=== PATIENT | female | born 1940 | race Caucasian/White ===

== ENCOUNTER 2018-04-09 18:31 | Observation (INO) ==
--- NOTE | 2018-04-09 19:53 | Emergency Department Note ---
Lower Extremity Injury HPI - General Chief Complaint: Extremity Injury, Lower Stated Complaint: Left Hip Pain Time Seen by Provider: 04/09/18 19:07 Source: patient Mode of arrival: wheelchair Limitations: no limitations - History of Present Illness HPI Narrative: This patient had a left hip replacement on March [address] Meadows. This afternoon she began to have pain in the left hip with some swelling. No associated trauma. She is unable to walk on it now. - Related Data Home Medications Medication Instructions Recorded Confirmed calcium carbonate 500 mg calcium 500 mg PO QDAY tab 07/03/15 11/26/17 (1,250 mg) tablet cholecalciferol (vitamin D3) 2,000 2,000 unit PO QDAY 07/03/15 11/26/17 unit capsule cholestyramine (with sugar) 4 gram PO 21 Days #378 06/23/16 05/03/17 oral powder cyanocobalamin (vit B-12) 1,000 1,000 mcg PO QDAY 06/23/16 11/26/17 mcg tablet Previous Rx's Medication Instructions Recorded levothyroxine 50 mcg tablet 50 mcg PO DAILY #90 tab 05/06/17 sertraline 100 mg tablet 100 mg PO QDAY #90 tab 10/14/17 Allergies Allergy/AdvReac Type Severity Reaction Status Date / Time metformin AdvReac Unknown Diarrhea Verified 02/06/18 00:25 Review of Systems All systems ED: reviewed and negative except as stated. 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 She does have some swelling lateral to the hip. Limitations: no limitations General appearance: alert Head: atraumatic Chest: Present: normal inspection Respiratory: Present: normal lung sounds bilaterally Cardiovascular: Present: regular rate, normal rhythm, normal heart sounds Neurological: Present: alert Psychiatric: Present: normal affect Skin: Present: warm, dry Course Vital Signs Temperature 96.0 F L 04/09/18 18:31 Pulse Rate 117 H 04/09/18 18:31 Respiratory Rate 26 H 04/09/18 18:31 Blood Pressure 115/77 04/09/18 18:31 Pulse Oximetry (%) 100 04/09/18 18:31 Temperature 96.0 F L 04/09/18 18:31 Pulse Rate 117 H 04/09/18 18:31 Respiratory Rate 26 H 04/09/18 18:31 Blood Pressure 115/77 04/09/18 18:31 Pulse Oximetry (%) 100 04/09/18 18:31 Extremity Injury, Lower - MDM Narrative Medical decision making narrative: X-ray left hip shows similar bone pulling away from the prosthesis at the upper aspect. I discussed the case with Dr. Clemente Lopez the patient will be admitted to the hospital for pain control with Dr. Meadows to consult tomorrow. - Radiology Data Radiology results reviewed: Yes I reviewed the patient's radiology results. Disposition Pt seen by MANAGER BAKERY/PA only: No Clinical Impression: Hip pain Disposition: Xfer As Inpt ([facility]) Condition: Good Referrals: Gwyn Salgado MD [Primary Care Provider] - Time of Disposition: 19:52
--- NOTE | 2018-04-09 20:40 | XRay Report ---
HISTORY: Reason for Exam:Left hip pain, decreased ROM. FINDINGS: Patient has a left total hip prosthesis which is well-positioned. There is no reabsorption of bone around the hardware. An intertrochanteric fracture is present in the hip. Lesser trochanter is fragmented and the fragments are displaced medially. The greater trochanter is displaced superiorly. The fracture fragments arising from the trochanters have become much more widely displaced compared with the recent x-ray done on 03/10/18. IMPRESSION: Worsening displacement of fractures involving the lesser and greater trochanters Interpreted and Authenticated by: Darnell Wiley 04/09/18
[2018-04-09] MEDS ORDERED: ONDANSETRON 4 MG/2 ML VIAL IV PRN (21:00)
[2018-04-09] MEDS ORDERED: ACETAMINOPHEN 1,000 MG/100 ML BOTTLE IV PRN (21:00)
[2018-04-09] MEDS ORDERED: SENNOSIDES/DOCUSATE SODIUM 1 TAB TABLET PO SCH (21:00)
[2018-04-09] MEDS ORDERED: POLYETHYLENE GLYCOL 3350 17 GM PACKET PO PRN (21:00)
[2018-04-09] MEDS ORDERED: MAGNESIUM HYDROXIDE 30 ML ORAL.SUSP PO PRN (21:00)
[2018-04-09] MEDS ORDERED: ACETAMINOPHEN 325 MG TABLET PO PRN (21:00)
[2018-04-09] MEDS ORDERED: traZODone HCL 50 MG TABLET PO PRN (21:00)
[2018-04-09] MEDS ORDERED: traMADol 50 MG TABLET PO PRN (21:00)
[2018-04-09] MEDS ORDERED: MAGNESIUM SULFATE 2 GM/50 ML BAG IV PRN (21:00)
[2018-04-09] MEDS ORDERED: SERTRALINE 100 MG TABLET PO SCH (21:00)
[2018-04-09] MEDS ORDERED: POTASSIUM CHLORIDE 20 MEQ PACKET PO PRN (21:00)
[2018-04-09] MEDS: HYDROcodone/APAP 5/325MG TABLET PO PRN (21:59)
[2018-04-09] MEDS: HEPARIN 5,000 UNIT/ML VIAL SQ SCH (22:00)
[2018-04-09] MEDS: 0.9 % SODIUM CHLORIDE 10 ML SYRINGE IV SCH (22:01)
[2018-04-09] MEDS: DOCUSATE SODIUM 100 MG CAPSULE PO SCH (22:01)
--- NOTE | 2018-04-09 22:12 | Internal Med History&Physical ---
Medical - H&P: [facility] Patient information: Note initiated : 04/09/18 at 10:07 pm Service Date, if different from initiated Date: [] Patient: Lyric Mishra a 77 y/o F admitted on 04/09/18 for Left Hip Pain. Chief Complaint: [] Chief complaint: left groin and hip pain History of present illness: Ms. Mishra is a 77 year old F who recently underwent left hip surgery last month and was recovering fairly well until this morning patient suddenly noticed excruciating pain along with difficulty ambulating and weightbearing. Symptoms started without any trauma or fall. Pain is described as 6 out of 10 radiating to the groin and associated with left thigh cramps. She denies bowel or bladder incontinence or dysuria or bloody stool. She denies unilateral weakness. She denies fever or localized redness or swelling. Her pain continued to get worse over the next few hours prompting her to come to the ER. Initial workup in the ER revealed worsening displacement of fracture involving lesser trochanter. Orthopedics were consulted and hospitalist service was requested for admission for pain management. At the time of evaluation patient is alert and oriented. She is in moderate discomfort. She was able to answer most questions and history as above. He denies chest pain shortness of breath, headache photophobia. Review of systems 10 point review of systems and is negative except as discussed above Medical - H&P: PM Medical history: Anemia (Chronic) remote Atrophic vaginitis (Chronic) (05/16/2014 Dr Bliss) Colon adenoma (Chronic) Cystocele (Chronic) Depression (Chronic 11/21/13) Diabetes mellitus, type II (Chronic) mild Diverticulosis of colon (Chronic) Dyspnea (Chronic) on exertion Excessive sweating (Chronic) Hernia, hiatal (Chronic 03/14/14) Hyperlipidemia (Chronic) Hypothyroidism (Chronic) Insomnia (Chronic) Low back pain (Chronic 10/26/12) Osteoporosis (Chronic) Overactive bladder (Chronic) 05/16/2014 Dr Bliss) Reactive airway disease (Chronic) Rectocele (Chronic 03/14/14) Vaginal vault prolapse, posthysterectomy (Chronic) marked Allergic contact dermatitis (Resolved 10/02/13) Inframammary monilial dermatitis Bilateral carpal tunnel syndrome (Resolved 05/14/14) Right greater than left Bladder pain (Resolved) 05/16/2014 Dr Bliss) Chest pain (Resolved) 02/28 tightness Closed fracture of surgical neck of humerus (Resolved 02/05/14) left Pneumonia (Resolved) 11/27 bilateral pneumonia Trochanteric bursitis of both hips (Resolved 10/26/12) Unexplained weight loss (Resolved 11/14/13) 25 pounds past year Urinary retention (Resolved) 05/16/2014 Dr Bliss) Urinary tract infection (Resolved) Pertinent family history: Father , Father of vascular complications Atherosclerosis Sister Dementia Hyperlipidemia Mother , at 87y Family history of diabetes mellitus Acute myocardial infarction Social history: household members: spouse housing: house marital status: smoking status: Never smoker alcohol intake frequency: a few times a week Medical - H&P: Meds Home Medications Medication Instructions Recorded Confirmed Type calcium carbonate 500 mg calcium 500 mg PO QDAY tab 07/03/15 04/09/18 History (1,250 mg) tablet cholecalciferol (vitamin D3) 2,000 2,000 unit PO QDAY 07/03/15 04/09/18 History unit capsule cholestyramine (with sugar) 4 gram PO PRN 21 Days #378 06/23/16 05/03/17 History oral powder cyanocobalamin (vit B-12) 1,000 1,000 mcg PO QDAY 06/23/16 04/09/18 History mcg tablet levothyroxine 50 mcg tablet 50 mcg PO DAILY #90 tab 05/06/17 04/09/18 Rx Aspirin [[place] Aspirin] 81 mg PO DAILY 04/09/18 04/09/18 History HYDROcodone/APAP 5/325MG [[place] 1 tab PO Q4HP PRN 04/09/18 04/09/18 History 5-325Mg] Sennosides [Senna] 8.6 mg PO DAILY 04/09/18 04/09/18 History Sertraline [Zoloft] 100 mg PO HS 04/09/18 04/09/18 History Allergies Allergy/AdvReac Type Severity Reaction Status Date / Time metformin AdvReac Unknown Diarrhea Verified 02/06/18 00:25 Medical - H&P: Exam - Constitutional Vitals: Temp Pulse Resp BP Pulse Ox 98.3 F 93 H 16 96/65 98 04/09/18 20:51 04/09/18 20:51 04/09/18 20:51 04/09/18 20:51 04/09/18 20:51 General appearance: no acute distress Exam: Pupils symmetric oral cavity dry No ear nose discharge Head normocephalic Neck no lymphadenopathy S1 and S2 regular rhythm Chest clear to auscultation Abdomen soft Lower extremity significant pain left groin and thigh No joint swelling or erythema Skin no suspicious lesion Psych alert and cooperative Neuro nonfocal Medical - H&P: A/P (1) Dislocation of internal left hip prosthesis Current visit: No Status: Acute * Displaced fracture left hip- orthopedics consulted. * Pain management continue as needed opioids. * Anxiety disorder continue Zoloft * Hypothyroidism continue thyroxine * Full Code * Prophylaxis heparin Plan * Observation admit * Pain management and orthopedics consult * Pre-existing medical condition management as above Medical - H&P: Qual - Stroke Symptom Onset Unknown: No - VTE Deep Vein Thrombosis/Pulmonary Embolism Present on Admission: No
[2018-04-10] MEDS ORDERED: 0.9 % SODIUM CHLORIDE 500 ML IV ONE
[2018-04-10] MEDS ORDERED: NALOXONE HCL 0.4 MG/ML VIAL IV PRN
[2018-04-10 01:12] LABS: Basophils # (Auto) 0 K/mcL (0.0-0.3); Basophils % (Auto) 0.6 % (0.0-2.0); Eosinophils # (Auto) 0.1 K/mcL (0.0-0.7); Eosinophils % (Auto) 1.8 % (0.0-7.0); Granulocytes % (Auto) 62.8 % (38.0-78.0); Lymphocytes # (Auto) 2.1 K/mcL (1.5-4.8); Lymphocytes % (Auto) 26.7 % (15.5-49.0); Mean Cell Volume 86.4 fL (80.0-100.0); Mean Corpuscular HGB Conc 33.6 g/dL (31.0-36.0); Monocytes # (Auto) 0.6 K/mcL (0.1-0.9); Monocytes % (Auto) 8.1 % (1.0-12.0); Platelet Count 238 K/mcL (140-440); RBC 3.06 M/mcL (4.00-5.20); Red Cell Distribution Width 15.8 % (11.5-14.5)
[2018-04-10] MEDS: 0.9 % SODIUM CHLORIDE 10 ML SYRINGE IV SCH (05:45)
[2018-04-10 06:19] LABS: ALT/SGPT 6 U/l (0-40); Albumin 3.3 gm/dL (3.2-5.2); Albumin/Globulin Ratio 1.5 (1.0-2.3); Alkaline Phosphatase 84 U/L (39-117); Bilirubin,Direct < 0.2 mg/dL (0.0-0.3); Blood Urea Nitrogen 13 mg/dl (8-23); Gamma Glutamyl Transpeptidase 26 U/L (5-36)
[2018-04-10] MEDS ORDERED: LEVOTHYROXINE 25 MCG TABLET PO SCH (07:30)
[2018-04-10] MEDS: HEPARIN 5,000 UNIT/ML VIAL SQ SCH (08:47)
[2018-04-10] MEDS: DOCUSATE SODIUM 100 MG CAPSULE PO SCH (08:47)
[2018-04-10] MEDS ORDERED: MULTIVIT,THER IRON,CA,FA & MIN 1 TABLET PO SCH (09:00)
[2018-04-10] MEDS ORDERED: ASPIRIN 81 MG TAB.CHEW PO SCH (09:00)
--- NOTE | 2018-04-10 09:50 | Orthopedic Consult Note ---
History of Present Illness - [facility] Patient information: Note initiated : 04/10/18 at 9:48 am Service Date, if different from initiated Date: [] Patient: Lyric Mishra 77 y/o F admitted on 04/09/18 for Left Hip Pain. Chief Complaint: [Pt admitted for pain control secondary to acute onset of left hip pain with presumed diagnosis of failure of revision surgery with displaced fracture of greater trochanter. ] Review of Systems Constitutional: as per HPI Musculoskeletal: abnormal gait, limited range of motion, muscle cramps, myalgias Musculoskeletal: left: hip pain, hip swelling Integumentary: unusual bruising Medications and Allergies Home Medications Medication Instructions Recorded Confirmed Type calcium carbonate 500 mg calcium 500 mg PO QDAY tab 07/03/15 04/09/18 History (1,250 mg) tablet cholecalciferol (vitamin D3) 2,000 2,000 unit PO QDAY 07/03/15 04/09/18 History unit capsule cholestyramine (with sugar) 4 gram PO PRN 21 Days #378 06/23/16 05/03/17 History oral powder cyanocobalamin (vit B-12) 1,000 1,000 mcg PO QDAY 06/23/16 04/09/18 History mcg tablet levothyroxine 50 mcg tablet 50 mcg PO DAILY #90 tab 05/06/17 04/09/18 Rx Aspirin [[place] Aspirin] 81 mg PO DAILY 04/09/18 04/09/18 History HYDROcodone/APAP 5/325MG [[place] 1 tab PO Q4HP PRN 04/09/18 04/09/18 History 5-325Mg] Sennosides [Senna] 8.6 mg PO DAILY 04/09/18 04/09/18 History Sertraline [Zoloft] 100 mg PO HS 04/09/18 04/09/18 History Allergies Allergy/AdvReac Type Severity Reaction Status Date / Time metformin AdvReac Unknown Diarrhea Verified 02/06/18 00:25 Physical Examination - Hip left Tenderness with palpation: posterior, lateral, greater trochanter Pain with motion: internal rotation and hip flexion, internal rotation and hip extension, external rotation and hip flexion, external rotation and hip extension ROM: flexion: 60 degrees ROM: abduction: 10 degrees ROM: adduction: 10 degrees ROM: internal rotation: 25 degrees ROM: external rotation: 30 degrees Crepitus with motion: No Strength: extension: 2/5 Strength: flexion: 2/5 Strength: abduction: 1/5 Strength: adduction: 2/5 Strength: external rotation: 3/5 Assessment and Plan (1) Hx of fracture of left hip Periprosthetic hip fracture of left hip involving Greater Troch/Lesser Troch Plan: Ok to discharge home with pain control. Pt advised regarding f/u with Dr Chaitanya Huerta for further Surgical planning for probable Hook Plate ORIF. Pt is to be wt bearing as tolerated with no walking other than basic ADL's. No abduction of hip or excessive hip ROM. Walker needed for all ambulation. Pain control to be Rx by ORTHO and Hospitalist to d/c patient to home. Status: Acute (2) Periprosthetic fracture of femur following total replacement of hip Status: Acute (3) Periprosthetic fracture of femur following total replacement of hip Status: Acute Qualifiers: Encounter type: initial encounter Qualified Code(s): M97.8XXA - Periprosthetic fracture around other internal prosthetic joint, initial encounter; Z96.649 - Presence of unspecified artificial hip joint
--- NOTE | 2018-04-10 10:20 | Discharge Summary ---
Medical - DS: Prov Patient information: Note initiated : 04/10/18 at 10:18 am Service Date, if different from initiated Date: [] Patient: Lyric Mishra 77 y/o F admitted on 04/09/18 for Left Hip Pain. Chief Complaint: [] Date of admission: 04/09/18 20:51 Discharge date: 04/10/18 Primary care physician: Gwyn Salgado Consults: 04/09/18 19:45 Consult to Physician [CONS] Stat Comment: Consulting Provider: Keaton Cornejo Reason For Exam: Physician to Consult 04/09/18 19:46 Consult to Physician [CONS] Stat Comment: Consulting Provider: Bassam Menchaca Reason For Exam: Physician to Consult Medical - DS: Meds - Discharge Medications Prescriptions: oxyCODONE HCL/ACETAMINOPHEN [Percocet 7.5-325 mg Tablet] 1 - 2 tab PO Q4-6HP PRN #60 tab PRN Reason: Pain Active and Home Medications: Home Medications calcium carbonate 500 mg calcium (1,250 mg) tablet 500 mg PO QDAY tab 07/03/15 [History Confirmed 04/09/18 Last Taken 02/03/18] cholecalciferol (vitamin D3) 2,000 unit capsule 2,000 unit PO QDAY 07/03/15 [ History Confirmed 04/09/18 Last Taken 02/02/18] cholestyramine (with sugar) 4 gram oral powder PO PRN 21 Days #378 06/23/16 [ History Confirmed 05/03/17 Last Taken Unknown] cyanocobalamin (vit B-12) 1,000 mcg tablet 1,000 mcg PO QDAY 06/23/16 [History Confirmed 04/09/18 Last Taken 02/01/18] levothyroxine 50 mcg tablet 50 mcg PO DAILY #90 tab 05/06/17 [Rx Confirmed 04/09 Last Taken 04/09/18] Aspirin [[place] Aspirin] 81 mg PO DAILY 04/09/18 [History Confirmed Last Taken 04/09/18 09:30] HYDROcodone/APAP 5/325MG [[place] 5-325Mg] 1 tab PO Q4HP PRN 04/09/18 [History Confirmed 04/09/18 Last Taken 04/09/18 15:30] Sennosides [Senna] 8.6 mg PO DAILY 04/09/18 [History Confirmed 04/09/18 Last Taken 04/09/18 09:30] Sertraline [Zoloft] 100 mg PO HS 04/09/18 [History Confirmed 04/09/18 Last Taken 04/08/18 23:30] oxyCODONE HCL/ACETAMINOPHEN [Percocet 7.5-325 mg Tablet] 1 - 2 tab PO Q4-6HP PRN #60 tab 04/10/18 [Rx Last Taken Unknown] Medical - DS: Hosp Hospital course: Discharge diagnoses * Displaced fracture left hip- orthopedics consulted and recommended discharge home with follow-up outpatient for possible further surgical planning. * Pain management continue as needed opioids. Patient feels a lot better and requesting discharge * Anxiety disorder continue Zoloft * Hypothyroidism continue thyroxine Brief hospital course Ms. Mishra is a 77 year old F who recently underwent left hip surgery last month and was recovering fairly well until this morning patient suddenly noticed excruciating pain along with difficulty ambulating and weightbearing. Symptoms started without any trauma or fall. Pain is described as 6 out of 10 radiating to the groin and associated with left thigh cramps. She denies bowel or bladder incontinence or dysuria or bloody stool. She denies unilateral weakness. She denies fever or localized redness or swelling. Her pain continued to get worse over the next few hours prompting her to come to the ER. Initial workup in the ER revealed worsening displacement of fracture involving lesser trochanter. Orthopedics were consulted and hospitalist service was requested for admission for pain management. 04/10 -patient doing better. No overnight events. Pain much improved. Patient was evaluated by orthopedics. Recommending discharge with outpatient follow-up orthopedics on . Weightbearing and his activity instructions as per orthopedics. Discharge diagnosis: . - Time Spent with Patient Total time spent providing and/or coordinating discharge services: Greater than 30 minutes Medical - DS: Exam - Constitutional Vitals: Vital Signs Temp Pulse Pulse Resp BP BP BP 04/10/18 07:10 99.0 F 77 18 98/65 04/10/18 04:00 97.8 F 71 14 96/61 04/10/18 02:43 97.7 F 91 H 16 114/75 04/10/18 02:11 81 99/65 04/10/18 01:56 82 101/64 04/10/18 01:41 84 101/68 04/10/18 01:26 82 95/62 04/10/18 01:11 82 98/65 04/10/18 01:06 83 105/70 04/10/18 00:44 79 14 99/63 18 00:41 81 95/61 04/10/18 00:37 79 14 96/63 04/10/18 00:33 85 99/65 04/10/18 00:27 79 102/66 04/10/18 00:25 73 105/69 04/10/18 00:19 97.7 F 74 12 93/61 04/10/18 00:13 86/60 04/10/18 00:07 94/67 04/10/18 00:04 83/58 04/10/18 00:00 81 14 04/09/18 23:45 75 18 62/48 62/41 04/09/18 20:51 98.3 F 93 H 16 96/65 04/09/18 20:46 84 105/76 04/09/18 20:32 87 04/09/18 20:31 77 105/76 04/09/18 20:07 82 112/68 04/09/18 18:31 96.0 F L 117 H 26 H 115/77 Pulse Ox 04/10/18 07:10 95 04/10/18 04:00 96 04/10/18 02:43 95 04/10/18 02:11 94 04/10/18 01:56 94 04/10/18 01:41 95 04/10/18 01:26 96 04/10/18 01:11 97 04/10/18 01:06 98 04/10/18 00:44 100 04/10/18 00:41 98 04/10/18 00:37 97 04/10/18 00:33 96 04/10/18 00:27 95 04/10/18 00:25 97 04/10/18 00:19 99 04/10/18 00:13 98 04/10/18 00:07 04/10/18 00:04 04/10/18 00:00 94 04/09/18 23:45 98 04/09/18 20:51 98 04/09/18 20:46 96 04/09/18 20:32 96 04/09/18 20:31 93 04/09/18 20:07 97 04/09/18 18:31 100 Intake and Output 04/09/18 04/10/18 04/10/18 21:59 05:59 13:59 Intake Total 650 / 650 200 / 200 Output Total 150 / 150 150 / 150 250 / 250 Balance -150 / -150 500 / 500 -50 / -50 Intake: IV 500 / 500 Sodium Chloride 0.9% 500 ml @ 500 / 500 Wide Open IV .Q0M ONE Rx#: [id number] Oral 150 / 150 200 / 200 Output: Void Amount 150 / 150 150 / 150 250 / 250 Other: Meal Breakfast Percent of Meal Consumed 75% # Voids 1 1 Weight 170 lb Medical - DS: Data Labs on day of discharge: Labs from last 24 hours 04/10/18 04/10/18 04/10/18 04:16 00:12 00:12 WBC 7.9 RBC 3.06 L Hgb 8.9 L Hct 26.5 L POC Hct 24.0 L MCV 86.4 MCH 29.0 MCHC 33.6 RDW 15.8 H Plt Count 238 MPV 9.0 Gran % 62.8 Lymph % (Auto) 26.7 [place] % (Auto) 8.1 Eos % (Auto) 1.8 Baso % (Auto) 0.6 Gran # 5.0 Lymph # (Auto) 2.1 [place] # (Auto) 0.6 Eos # (Auto) 0.1 Baso # (Auto) 0 POC Sodium 140 Sodium 140 POC Potassium 3.9 Potassium 4.0 POC Chloride 107 Chloride 107 Carbon Dioxide 23 POC Total CO2 22 Anion Gap 10.0 POC BUN 15 BUN 13 Creatinine 0.7 POC Creatinine 0.9 GFR Calculation 85 Glucose 133 H POC Glucose 130 H Uric Acid 5.0 Calcium 8.4 L POC WB Ioniz Calcium 1.17 Phosphorus 3.7 Magnesium 1.9 Total Bilirubin 0.4 Direct Bilirubin < 0.2 GGT 26 AST 13 ALT 6 Alkaline Phosphatase 84 Lactate Dehydrogenase 196 Total Protein 5.5 L Albumin 3.3 Globulin 2.2 Albumin/Globulin Ratio 1.5 Triglycerides 98 Medical - DS: A/P - Patient/Caregiver Discharge Instructions Activity: increase activity as tolerated Diet: Regular Diet Additional Instructions: Follow-up Dr. Meadows Activity as per orthopedics Ambulate with assistance of walker Discharge home as per orthopedic recommendations Prescriptions: oxyCODONE HCL/ACETAMINOPHEN [Percocet 7.5-325 mg Tablet] 1 - 2 tab PO Q4-6HP PRN #60 tab PRN Reason: Pain - Problem Maintenance (1) Dislocation of internal left hip prosthesis Status: Acute - Follow up Plan Follow up with: Gwyn Salgado MD [Primary Care Provider] - Disposition: Home, Self-Care Prognosis: Good Rehab Potential: Fair I certify that the patient requires SNF services: No Overall status at discharge: patient is progressing back to baseline Medical - DS: Qual - VTE Deep Vein Thrombosis/Pulmonary Embolism Present on Admission: No
[2018-04-10] MEDS: HYDROcodone/APAP 5/325MG TABLET PO PRN (11:48)
== END 2018-04-10 11:50 | disposition home or self-care (01) ==
LOC: MEDSUR 18:31 → ED 18:31 → MEDSUR 20:53
PROVIDERS: ADMIT Internal Medicine; ATTEND Internal Medicine

== ENCOUNTER 2018-07-04 15:59 | Observation (INO) ==
[2018-07-04] MEDS ORDERED: fentaNYL 100 MCG/2 ML VIAL IV PRN ×3 (16:25→18:46)
[2018-07-04] MEDS ORDERED: ONDANSETRON 4 MG/2 ML VIAL IV ONE (16:25)
[2018-07-04] MEDS ORDERED: 0.9 % SODIUM CHLORIDE 1,000 ML IV ONE (16:40)
--- NOTE | 2018-07-04 16:50 | XRay Report ---
HISTORY: Fell with injury to left hip FINDINGS: Patient has a left total hip prosthesis. The femoral head is dislocated superiorly and laterally. There is an old ununited fracture fragment arising from the lesser trochanter. The left pubic bone is somewhat distorted due to old healed fracture. No acute fracture is present. IMPRESSION: Dislocated left hip prosthesis Interpreted and Authenticated by: Darnell Wiley 07/04/18
--- NOTE | 2018-07-04 16:52 | XRay Report ---
HISTORY: Fell and dislocated hip FINDINGS: The prosthetic femoral head is dislocated from the prosthetic acetabulum and is displaced superiorly and laterally. There is a long intramedullary saira in the femur which is well-positioned and there is no reabsorption of bone about around the hardware. Distal femur is osteopenic. There are old ununited fractures in the greater and lesser trochanters. No acute fracture has developed. IMPRESSION: Dislocated left hip prosthesis Interpreted and Authenticated by: Darnell Wiley 07/04/18
--- NOTE | 2018-07-04 16:55 | Cat Scan Report ---
History: Fell and hit head. TECHNIQUE: The brain was imaged without contrast at 2.5 mm intervals. The radiation exposure was limited using dose reduction technology. FINDINGS: A 5 mm lacunar infarct is present in the anterior limb of the right internal capsule. This does not appear to be acute. Patchy areas of decreased attenuation are present in the centrum semiovale bilaterally. This is most apparent in the posterior, superior, medial aspect of the right temporal lobe. There is no intracranial hemorrhage or cerebral edema. No mass effect is present. There is no abnormal extra-axial fluid collection. Mild atrophy is noted. There is no skull fracture. IMPRESSION: Small old lacunar infarct in the anterior limb of the right internal capsule and mild to moderate white matter ischemic or degenerative changes above the tentorium. Mild atrophy No acute abnormality Angelina Pantoja was called with the results Interpreted and Authenticated by: Darnell Wiley 07/04/18
--- NOTE | 2018-07-04 16:59 | Cat Scan Report ---
History: Fell with neck injury TECHNIQUE: The neck was imaged without contrast at 2.5 mm intervals from the skull base through the thoracic inlet. Sagittal and coronal reformats are created. Radiation exposure was limited using dose reduction technology. FINDINGS: The cervico-occipital junction is normal. There is no fracture or evidence of acute spinal injury. There is severe disc space narrowing with associated spur formation at C4-5, C5-6 and C6-7. This causing mild central canal stenosis at C5-6. There has significant stenosis of the neural foramina bilaterally from C4-5 through C6-7. No soft tissue masses seen in the neck and there is no hematoma. Densely calcified plaques are present in the right common carotid artery. The lung apices are clear except for some minor fibrosis medially in the left apex. IMPRESSION: No fracture Severe degenerative disc disease in the lower cervical spine Angelina Pantoja was called with results Interpreted and Authenticated by: Darnell Wiley 07/04/18
[2018-07-04] MEDS ORDERED: PROPOFOL 200 MG/20 ML VIAL IV ONE (17:50)
[2018-07-04] MEDS ORDERED: PHENYLEPHRINE 10 MG/ML VIAL IV ONE (17:50)
--- NOTE | 2018-07-04 18:22 | XRay Report ---
HISTORY: Postreduction of dislocated hip prosthesis FINDINGS: The prosthetic left femoral head is now normally centered within the prosthetic acetabulum. No new fracture is present. There are old ununited fractures of the greater and lesser trochanters. IMPRESSION: Good alignment following closed reduction of the previously dislocated hip Interpreted and Authenticated by: Darnell Wiley 07/04/18
--- NOTE | 2018-07-04 18:36 | Emergency Department Note ---
Lower Extremity Injury HPI - General Chief Complaint: Extremity Injury, Lower Stated Complaint: left hip pain Time Seen by Provider: 07/04/18 16:08 Source: patient, EMS Mode of arrival: EMS Limitations: no limitations - History of Present Illness HPI Narrative: 78-year-old female presents via EMS. Earlier today she kind of leaned forward and felt like her left hip popped out of place. She believes is dislocated. She did have surgery on the hip with a hip replacement back in March. States is been fine until today. Then she tried to hop on one foot over to the window to call for help when she slipped and fell. She is unsure how she landed but she did hit her head and is having some head and neck pain. No loss of consciousness. States the main problem is her hip. The left leg feels like Jell-O and she has no range of motion and believes her hip is dislocated. No numbness or tingling. No back pain. - Related Data Home Medications Medication Instructions Recorded Confirmed calcium carbonate 500 mg calcium 500 mg PO QDAY tab 07/03/15 05/08/18 (1,250 mg) tablet cholecalciferol (vitamin D3) 2,000 2,000 unit PO QDAY 07/03/15 05/08/18 unit capsule cyanocobalamin (vit B-12) 1,000 1,000 mcg PO QDAY 06/23/16 05/08/18 mcg tablet Aspirin [[place] Aspirin EC] 81 mg PO DAILY 04/09/18 05/08/18 Sennosides [Senna] 8.6 mg PO DAILY 04/09/18 05/08/18 Sertraline [Zoloft] 100 mg PO DAILY 07/04/18 07/04/18 Previous Rx's Medication Instructions Recorded levothyroxine 50 mcg tablet 50 mcg PO DAILY #90 tab 05/06/17 oxyCODONE HCL/ACETAMINOPHEN 1 - 2 tab PO Q4-6HP PRN #60 tab 04/10/18 [Percocet 7.5-325 mg Tablet] nystatin 100,000 unit/gram topical 1 applic TOPICAL TID #60 g 05/08/18 powder ascorbic acid (vitamin C) 500 mg 1.5 g PO QDAY #1 tab 05/31/18 tablet cholecalciferol (vitamin D3) 1,000 See Label Instructions .ROUTE 05/31/18 unit tablet .COMPLEX #1 tab Allergies Allergy/AdvReac Type Severity Reaction Status Date / Time metformin AdvReac Unknown Diarrhea Verified 05/08/18 13:10 Review of Systems All systems ED: reviewed and negative except as stated. Past Medical History - Past Medical History [facility] Narrative: Medical History (Last Reviewed 05/08/18 @ 13:35 by Gwyn Salgado MD) Excessive sweating (Chronic) Unexplained weight loss (Resolved 11/14/13) Vaginal vault prolapse, posthysterectomy (Chronic) Urinary tract infection (Resolved) Urinary retention (Resolved) Trochanteric bursitis of both hips (Resolved 10/26/12) Rectocele (Chronic 03/14/14) Reactive airway disease (Chronic) Pneumonia (Resolved) Overactive bladder (Chronic) Osteoporosis (Chronic) Low back pain (Chronic 10/26/12) Insomnia (Chronic) Allergic contact dermatitis (Resolved 10/02/13) Hypothyroidism (Chronic) Hyperlipidemia (Chronic) Hernia, hiatal (Chronic 03/14/14) Closed fracture of surgical neck of humerus (Resolved 02/05/14) Dyspnea (Chronic) Diverticulosis of colon (Chronic) Diabetes mellitus, type II (Chronic) Depression (Chronic 11/21/13) Cystocele (Chronic) Colon adenoma (Chronic) Chest pain (Resolved) Bladder pain (Resolved) Bilateral carpal tunnel syndrome (Resolved 05/14/14) Atrophic vaginitis (Chronic) Anemia (Chronic) Past Surgical History (Last Updated 05/08/18 @ 13:37 by Gwyn Salgado MD) Hip dislocation, left (Resolved) S/P ELSIE-BSO (Resolved) History of Bita fundoplication (Resolved) History of surgery (Resolved 02/05/14) History of left hip replacement (Resolved 07/16/13) History of hammer toe correction (Resolved) History of esophagogastroduodenoscopy (Resolved 04/12/14) History of dilation and curettage (Resolved) History of colonoscopy (Resolved 06/01/10) History of cholecystectomy (Resolved) History of left breast biopsy (Resolved 03/14/09) History of bladder surgery (Resolved) History of revision of total replacement of left hip joint (Resolved) Medical history: Reports: DM, hyperlipidemia, osteoporosis, thyroid disease Psychiatric history: Reports: no psych history 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 Absent: conjunctival injection, nystagmus, periorbital swelling, periorbital tenderness ENT: normal exam, normal oropharynx, mucous membranes moist, TM's normal bilaterally, normal external ear exam Neck: Present: normal inspection, tenderness (Does have some midline cervical spine tenderness at C4-C5 with palpation. No step-off or deformity. Is in full sleep spine precautions on exam). Absent: lymphadenopathy Chest: Present: normal inspection, symmetric chest wall rise Respiratory: Present: normal lung sounds bilaterally. Absent: respiratory distress, accessory muscle use Cardiovascular: Present: regular rate, normal heart sounds Extremities: Present: normal capillary refill. Absent: normal inspection (Left hip with obvious deformity and shortening and rotation. Tender. Left lateral proximal forearm with 5 cm abrasion and ecchymosis. Superficial abrasion with no active bleeding. Nontender to palpation and full active and passive range of motion intact upper extremities mentally.) Neurological: Present: alert, oriented X3, CN II-XII intact. Absent: motor sensory deficit Psychiatric: Present: normal affect, normal mood Skin: Present: warm, dry, intact, normal color Course Course Narrative: CT of the head and neck are negative. X-rays of the pelvis and femur show a dislocated left hip. I did call Dr. Cornejo at 1700 who is on-call for orthopedic. He wanted us to reduce the hip. Let him know if we had any difficulties with it. Dr. Phillips with anesthesiology was called in for conscious sedation. Consent signed. Patient tolerated well however, 4 times we were able to reduce the hip with manual traction and as soon as we went to lay that her leg back down on the bed it would immediately popped back out. Was placed back in multiple times by Dr. Rosales, myself, and Dr. Phillips. The fifth time we were finally able to get it to stay in a knee immobilizer was placed. Postreduction films show good alignment. All of the providers had significant concern about it coming out again due to how difficult it was for a stay in place after reduction. I did call and talk to Dr. Cornejo again who asked me to call Dr. Meadows. I did speak with Dr. Tavares at 1800. Due to the concern we will place the patient in observation for the night and have her work of physical therapy in the morning and Dr. Tavares will see her in the morning. I will place him holding orders. Patient is agreeable to plan. Vital Signs Temperature 98.6 F 07/04/18 16:01 Pulse Rate 75 07/04/18 16:01 Respiratory Rate 20 07/04/18 16:01 Pulse Oximetry (%) 96 07/04/18 16:01 Temperature 98.6 F 07/04/18 16:01 Pulse Rate 75 07/04/18 16:01 Respiratory Rate 20 07/04/18 16:01 Pulse Oximetry (%) 96 07/04/18 16:01 Extremity Injury, Lower - Radiology Data Radiology results reviewed: Yes I reviewed the patient's radiology results. Disposition Pt seen by TRANSMISSIONS SYSTEMS OPERATOR/PA only: Yes Clinical Impression: Hip dislocation, left, Left hip pain Disposition: Xfer As Outpt/Obs ([facility]) Condition: Fair Instructions: Hip Dislocation (ED) Referrals: Gwyn Salgado MD [Primary Care Provider] - De Tavares MD [Physician] - Time of Disposition: 18:30
[2018-07-04] MEDS ORDERED: HYDROcodone/APAP 5/325MG TABLET PO PRN (18:39)
[2018-07-04] MEDS ORDERED: ONDANSETRON 4 MG/2 ML VIAL IV PRN (18:41)
--- NOTE | 2018-07-05 13:22 | Orthopedic Progress Note ---
Subjective Patient information: Note initiated : 07/05/18 at 1:20 pm Service Date, if different from initiated Date: [] Patient: Lyric Mishra 78 y/o F admitted on 07/04/18 for Left Hip Pain/Hip Dislocation. Chief Complaint: [minimal pain and dislocated bending over no sob and walking well today] Objective Vital signs: Vital Signs Temp Pulse Pulse Resp BP BP Pulse Ox 07/05/18 06:56 97.2 F 62 16 112/67 91 07/05/18 03:46 98 F 66 16 123/57 92 07/05/18 00:41 98.7 F 71 12 112/73 92 07/04/18 20:00 98.3 F 66 12 124/72 95 07/04/18 18:20 80 18 115/78 96 07/04/18 17:56 81 16 105/75 93 07/04/18 16:01 98.6 F 75 20 96 Intake and Output 07/04/18 07/05/18 07/05/18 21:59 05:59 13:59 Intake Total 1000 / 1000 0 / 0 600 / 600 Output Total 1100 / 1100 Balance 1000 / 1000 0 / 0 -500 / -500 Intake: IV 1000 / 1000 Sodium Chloride 0.9% 1,000 ml @ 1000 / 1000 500 mls/hr IV .Q2H ONE Rx#: [id number] Oral 0 / 0 600 / 600 Output: Void Amount 1100 / 1100 Other: Meal Breakfast Percent of Meal Consumed 100% 100% # Voids 1 2 Weight 173 lb 162 lb 8 oz Intake & Output: Intake & Output 07/04/18 07/05/18 07/05/18 21:59 05:59 13:59 Intake Total 1000 / 1000 0 / 0 600 / 600 Output Total 1100 / 1100 Balance 1000 / 1000 0 / 0 -500 / -500 Weight 173 lb 162 lb 8 oz Intake: IV 1000 / 1000 Sodium Chloride 0.9% 1,000 ml @ 1000 / 1000 500 mls/hr IV .Q2H ONE Rx#: [id number] Oral 0 / 0 600 / 600 Output: Void Amount 1100 / 1100 Other: Meal Breakfast Percent of Meal Consumed 100% 100% # Voids 1 2 Incision: Yes healing Incision clean and dry: Yes Dressing: Yes clean Weight bearing status: full Neurological exam IM: Yes oriented X3, Yes neurovascular intact Extremities exam IM: Yes Foot pink and warm, Yes neurovascular intact (dc home)
--- NOTE | 2018-07-05 13:24 | Discharge Summary ---
Ortho Discharge - [facility] - Patient Instructions Diet: Regular Diet Activity: activity as tolerated, weight bearing as tolerated Total Hip Protocol: Follow activity instructions as provided by Physical Therapy. Patient Education: Hip Dislocation (ED) - Follow Up Plan Follow Up Appointments: Gwyn Salgado MD [Primary Care Provider] - Nico Macedo PA-C [Physician Coat Operator Insulator] - 08/01/18 9:30 am Disposition: Home, Self-Care Prognosis: Fair Rehab Potential: Good I certify that the patient requires SNF services: No - Orders For Discharge Additional Discharge Orders: Physical Therapy at Discharge - [facility] Location: None Selected
[2018-07-05] MEDS ORDERED: FLU VACC QS2017-18 36MOS UP/PF 60 MCG/0.5 ML SYRINGE IM ONE (13:30)
--- NOTE | 2018-07-05 14:23 | History and Physical Report ---
DATE OF ADMISSION: 07/04/2018 HISTORY OF PRESENT ILLNESS: The patient was seen in the emergency room where she underwent a closed reduction after an acute dislocation. She originally had a total hip arthroplasty back in 2013 and did quite well. She has dislocated and she was revised in 02/2018 with a longer neck length. This made her very stable. She did very well for the last 3 months and then yesterday she was bending over and felt a pop. With that she was seen in the emergency room and admitted to the ED where she underwent IV sedation and reduction. It took several reductions to get it in and to get it to stay. With this, the patient then had an x-ray and this confirmed an excellent reduction. The patient then was admitted to the hospital. She has now undergone ambulation without pain and is doing quite well. She has a knee immobilizer on. PAST MEDICAL HISTORY: She is otherwise quite healthy. REVIEW OF SYSTEMS: She has no shortness of breath, no chest pain. MEDICATIONS: She occasionally takes Tylenol for pain. She lists no active home medication. SURGICAL HISTORY: As noted, regarding her left hip. PHYSICAL EXAMINATION: GENERAL: Very pleasant 78-year-old who is alert and oriented x3 in no acute pain, no distress. Mood and affect are appropriate. She is well-kempt and groomed. LUNGS: Clear. EXTREMITIES: Leg lengths were examined on the bed. These appear to be equal in length, maybe slightly longer even on the left. The knee immobilizer is in place. Her foot is pink and warm, neurologically intact. She walked quite well with physical therapy. She is able to get up out of bed, but she does require some assistance just because of the knee immobilizer. TEST REVIEW: X-ray of the left hip I reviewed from the emergency room which showed an AP pelvis and lateral that demonstrate a well-aligned left total hip arthroplasty with reduced hip, normal offset is present inclination is excellent in the cup. DIAGNOSIS: Total hip arthroplasty with revision for dislocation. PLAN: I told her that we would follow up in about a month or if she has any difficulties. She can be weightbearing as tolerated. I reviewed with her the hip precautions. That means when you bend over you put the foot behind you; also that you turn the foot out when you go to get up out of a chair. She does not want any pain medicine, but she is ready to be discharged. She meets all criteria and was discharged to home. RBH:kurtis Job ID: [id number] Doc ID: [id number] De Tavares MD
[2018-07-05] MEDS ORDERED: INFLUENZA VACCINE 60 MCG/0.5 ML IM ONE (14:33)
== END 2018-07-05 14:34 | disposition home or self-care (01) ==
LOC: ED 15:59 → MEDSUR 15:59
PROVIDERS: ADMIT Orthopaedic Surgery; ATTEND Orthopaedic Surgery
CPT/HCPCS: 73501; 73552; 90686; 90688; 97161; 99156; G0378; J2370; J2405; J3010; J7030; J7120; L0140